=== PATIENT | female | born 1975 | race Caucasian/White ===

== ENCOUNTER 2019-02-10 07:59 | Emergency (ER) | payer OTHER ==
[~2019-02-10] VITALS: Ht 167.6 cm; Wt 63.5 kg
[2019-02-10] MEDS ORDERED: KETOROLAC TROMETHAMINE 60 MG/2 ML VIAL IM ONE (08:15)
[2019-02-10] MEDS ORDERED: DICYCLOMINE HCL 20 MG/2 ML VIAL IM ONE (08:15)
[2019-02-10 08:31] LABS: BILIRUBIN,URINE NEGATIVE (NEGATIVE); CLARITY,URINE CLEAR (CLEAR); COLOR,URINE YELLOW (YELLOW); KETONES,URINE NEGATIVE (NEGATIVE); LEUKOCYTE ESTERASE ,URINE NEGATIVE (NEGATIVE); NITRITE,URINE NEGATIVE (NEGATIVE); PROTEIN,URINE DIPSTICK NEGATIVE (NEGATIVE); URINE UROBILINOGEN 0.2 mg/dL (0.2 - 1)
[2019-02-10 08:32] LABS: PREGNANCY TEST, URINE NEGATIVE (NEGATIVE)
[2019-02-10 09:08] LABS: BACTERIA,URINE RARE /HPF; EPITHELIAL CELLS,URINE FEW /LPF; WBC,URINE (MAN) 0-5 /HPF (0-5)
[2019-02-10 09:10] LABS: TRANSITIONAL EPI CELLS,URINE RARE
--- NOTE | 2019-02-10 10:03 | Diagnostic Imaging Report ---
Exam: Pelvic ultrasound. History: Dysfunctional uterine bleeding, severe pelvic pain. Comparison: None. Findings: Transabdominal and endovaginal sonographic evaluation of the pelvis. The uterus measures 9.5 x 4.2 x 5.4 cm. No evidence of mass. The endometrial stripe measures 4 mm. Tiny amount of fluid within the endometrium. The right ovary measures 2.7 x 1.6 x 1.8 cm. The left ovary measures 2.5 x 1.3 x 2.9 cm. Vascular flow is demonstrated in the left ovary. Per discussion with the technologist, Doppler flow was demonstrated in the right ovary, however due to technical issues, image was not able to be saved. Furthermore, per the technologist, the patient had no right pelvic tenderness. Physiologic anechoic cyst measuring 2.5 cm in the left ovary. Small amount of free fluid in the pelvis, likely physiologic. Impression: Normal sonographic appearance of bilateral ovaries. Vascular flow is demonstrated in the left ovary. Per discussion with the technologist, Doppler flow is demonstrated in the right ovary, however due to technical issues, image was not able to be saved and could not be reviewed. Small amount of free fluid in the pelvis, likely physiologic. Signed by: Dr. Camille Wagner MD on 02/10/2019 11:50 AM
[2019-02-10 10:52] VITALS: BP 120/88
== END 2019-02-10 10:54 | disposition home or self-care (01) ==
LOC: ER 07:59
DX: R10.2 Pelvic and perineal pain (principal); R10.30 Lower abdominal pain, unspecified; N93.8 Other specified abnormal uterine and vaginal bleeding
CPT/HCPCS: 76830; 81001; 81025; 99283; J0500; J1885